=== PATIENT | male | born 1960 | race Caucasian/White ===

== ENCOUNTER 2024-04-26 15:01 | Emergency (ER) | payer MEDICARE, SELFPAY ==
[2024-04-26 15:03] VITALS: BP 146/98
[2024-04-26 15:04] VITALS: BMI 28.5
[2024-04-26 15:05] VITALS: BP 146/98
[2024-04-26] MEDS: NSS 1000 IV ×2 (15:19→18:46)
[2024-04-26] MEDS: MAALOX 30 ML PO (15:33)
[2024-04-26 15:35] LABS: % Basophils 0.5 % (0-2); % Eosinophils 1.1 % (0-6); % Immature Granulocytes 0.5 % (0-0.5); % Lymphocytes 34.9 % (20.5-51.1); % Monocytes 8.9 % (1.7-9.3); % Neutrophils 54.1 % (42.2-75.2); Absolute Eosinophils 0.1 10^3/uL (0-0.7); Absolute Lymphocytes 2.7 10^3/uL (1.2-3.4); Absolute Monocytes 0.7 10^3/uL (0.1-0.6); Absolute Neutrophils 4.2 10^3/uL (1.4-6.5); Hematocrit 47.1 % (39.0-52.0); Hemoglobin 16.2 g/dL (13.0-18.0); Mean Corp Hgb Conc. 34.4 g/dL (33.0-37.0); Mean Corpuscular Hgb 30.1 pg (27.0-31.0); Mean Corpuscular Volume 87.5 fL (80.0-94.0); Mean Platelet Volume 10.7 fL (7.4-10.4); Nucleated Red Blood Cells % 0 % (-); Platelet Count 220 10^3/uL (130-400); Red Blood Cell Count 5.38 10^6/uL (4.70-6.10); Red Cell Dist. Width 13.6 % (11.5-14.5); White Blood Cell Count 7.9 10^3/uL (4.8-10.8)
[2024-04-26 15:45] LABS: ALT (SGPT) 41 U/L (0-50); AST (SGOT) 35 U/L (17-59); Albumin 4.8 g/dl (3.5-5.0); Alkaline Phosphatase 72 U/L (38-126); Blood Urea Nitrogen 16 mg/dl (9-20); Calcium 9.6 mg/dl (8.4-10.2); Carbon Dioxide 22 mmol/L (22-30); Chloride 104 mmol/L (98-107); Estimated Creatinine Clearance 69 ml/min; Glucose 112 mg/dl (70-99); Potassium 3.9 mmol/L (3.5-5.1); Sodium 139 mmol/L (135-145); Total Bilirubin 0.6 mg/dl (0.2-1.3); eGFR > 60.00
[2024-04-26 15:57] LABS: Troponin I < 0.012 ng/ml
[2024-04-26 16:00] VITALS: BP 146/89
[2024-04-26 17:14] VITALS: BP 141/98
--- NOTE | 2024-04-26 17:44 | ED.GENMED ---
History of Present Illness
<Jitendra Babb DO - Last Filed: 04/26/24 17:48>
General
Chief Complaint: Fainting/Passed Out
Source: patient and spouse
Exam Limitations: none
Time Seen by Provider: 04/26/24 15:32
History of Present Illness
History of Present Illness:
This 64-year-old male presents after a syncopal event while at a movie theater. Patient states he was watching a movie and suddenly developed sweating and nausea. He states he told his he had a leaf. They went outside and he was sitting down
and he states he got very sweaty and passed out. His states he then vomited and was extremely sweaty. Denies any associated chest pain. He did have a little bit of right arm pain and is not sure if it is associated. He now feels much better
but just feels a bit weak. Never had any chest pain or palpitations. Never had any shortness of breath. Does feel like he may have to have a bowel movement soon. Has had a history of constipation. No back pain.
Past History
<Jitendra Babb DO - Last Filed: 04/26/24 17:48>
Past History
ED Past Medical History: Other (Squamous cell skin cancer, eczema, diverticulitis, hyperlipidemia, PTSD)
ED Past Surgical History: Other (Hernia repair)
Social History
Tobacco: Former smoker
Alcohol: Occasional
Drug: None
Personal:
Living: with family
Employment: Other
Phy Exam
<Jitendra Babb DO - Last Filed: 04/26/24 17:48>
Physical Exam
Physical Exam:
CONSTITUTIONAL Patient alert and oriented to person, place and time. Well-appearing. Vital signs reviewed.
HEAD atraumatic, normocephalic.
EYES eyelids normal to inspection, Extraocular muscles intact, Conjunctiva normal, Sclera normal.
NECK normal range of motion, Trachea midline, no jugular venous distention.
RESPIRATORY CHEST No respiratory distress noted, Chest expansion equal, Bilateral breath sounds clear.
CARDIOVASCULAR regular rate and rhythm, Heart sounds normal.
ABDOMEN abdomen nontender, Bowel sounds normal. No distention.
BACK normal inspection, no obvious deformities
UPPER EXTREMITY range of motion normal, Motor strength normal, no cyanosis, no edema.
LOWER EXTREMITY range of motion normal, Motor strength normal, no cyanosis, no edema.
NEURO Speech normal, No focal motor deficits, Brittney coma scale 15, Memory normal, Cranial Nerves intact to screening exam.
SKIN skin warm, dry, and normal in color.
Course
<Jitendra Babb, DO - Last Filed: 04/26/24 17:48>
Orders/Labs/Results
Orders:
Orders
04/26/24 15:03
Electrocardiogram (*1) Urgent
Reason for Study: Syncope
04/26/24 15:04
EKG- Treatment ONCE
04/26/24 15:17
Complete Blood Count/With Diff Urgent
Comprehensive Metabolic Panel Urgent
Troponin I Urgent
04/26/24 15:19
0.9% Sodium Chloride 1000 ml [Nss] 1,000 ml IV BOLUS
04/26/24 15:26
Mag Hydrox/Al Hydrox/Simeth [Maalox] 30 ml .ROUTE .STK-MED ONE
04/26/24 15:33
Mag Hydrox/Al Hydrox/Simeth [Maalox] 30 ml PO NOW STA
04/26/24 18:00
Troponin I Urgent
04/26/24 18:44
0.9% Sodium Chloride 1000 ml [Nss] 1,000 ml IV BOLUS
Ondansetron Injectable [Zofran] 4 mg IV NOW STA
04/26/24 18:45
Ondansetron Injectable [Zofran] 4 mg .ROUTE .STK-MED ONE
04/26/24 19:50
Ondansetron HCl [Zofran] 4 mg PO NOW STA
Abnormal Lab Results
04/26/24
15:17
MPV 10.7 H fL
(7.4-10.4)
Absolute Monos (auto) 0.7 H 10^3/uL
(0.1-0.6)
Glucose 112 H mg/dl
(70-99)
04/26/24 15:17
04/26/24 15:17
Vital Signs
Initial and Last Documented VS:
Initial Vital Signs
Pulse Resp BP
71 16 146/98
04/26/24 15:03 04/26/24 15:03 04/26/24 15:03
Last Documented Vital Signs
Temp Pulse Resp BP Pulse Ox
98.0 F 75 23 151/93 97
04/26/24 15:05 04/26/24 19:45 04/26/24 16:45 04/26/24 19:00 04/26/24 19:45
<Lucita Damon, DO - Last Filed: 04/26/24 19:52>
Orders/Labs/Results
Orders:
Orders
04/26/24 15:03
Electrocardiogram (*1) Urgent
Reason for Study: Syncope
04/26/24 15:04
EKG- Treatment ONCE
04/26/24 15:17
Complete Blood Count/With Diff Urgent
Comprehensive Metabolic Panel Urgent
Troponin I Urgent
04/26/24 15:19
0.9% Sodium Chloride 1000 ml [Nss] 1,000 ml IV BOLUS
04/26/24 15:26
Mag Hydrox/Al Hydrox/Simeth [Maalox] 30 ml .ROUTE .STK-MED ONE
04/26/24 15:33
Mag Hydrox/Al Hydrox/Simeth [Maalox] 30 ml PO NOW STA
04/26/24 18:00
Troponin I Urgent
04/26/24 18:44
0.9% Sodium Chloride 1000 ml [Nss] 1,000 ml IV BOLUS
Ondansetron Injectable [Zofran] 4 mg IV NOW STA
04/26/24 18:45
Ondansetron Injectable [Zofran] 4 mg .ROUTE .STK-MED ONE
04/26/24 19:50
Ondansetron HCl [Zofran] 4 mg PO NOW STA
Abnormal Lab Results
04/26/24
15:17
MPV 10.7 H fL
(7.4-10.4)
Absolute Monos (auto) 0.7 H 10^3/uL
(0.1-0.6)
Glucose 112 H mg/dl
(70-99)
04/26/24 15:17
04/26/24 15:17
Vital Signs
Initial and Last Documented VS:
Initial Vital Signs
Pulse Resp BP
71 16 146/98
04/26/24 15:03 04/26/24 15:03 04/26/24 15:03
Last Documented Vital Signs
Temp Pulse Resp BP Pulse Ox
98.0 F 75 23 151/93 97
04/26/24 15:05 04/26/24 19:45 04/26/24 16:45 04/26/24 19:00 04/26/24 19:45
<Jitendra Babb DO - Last Filed: 04/26/24 17:48>
MDM/Problems Addressed
Differential Diagnosis Includes:
Arrhythmia, vasovagal event, gastroenteritis, electrolyte disturbance
MDM/Problems Addressed:
Vasovagal syncope, vomiting
<Jitendra Babb DO - Last Filed: 04/26/24 17:48>
*Pulse Oximetry
Patient hypoxic: no
*EKG
Interpreted by ED Provider?: Yes
Interpretation: abnormal
Rate: normal
Rhythm: sinus
Interval: first degree heart block
QRS Pattern: left vent hypertrophy
Ischemia: no ischemia
*Quality Systems Engineer Interpretation
Rate: normal
Interpretation: normal
Rhythm: sinus
*Critical Care Note
Total Time (30-74mins, 75-104mins- exclusive of procedures): Not Applicable
Data Reviewed
Source: patient and spouse
Further Testing Considered But Not Given:
Consider CT head but patient had no headache or other neurologic symptoms
<Jitendra Babb, DO - Last Filed: 04/26/24 17:48>
Patient Management
Escalation/DeEscalation of care consider admission/obs:
Suspect vasovagal event related to nausea and vomiting. Symptoms have since resolved and EKG and initial troponin negative but will repeat EKG. Never had any associated chest discomfort. If repeat troponin negative anticipate discharge
<Lucita Damon DO - Last Filed: 04/26/24 19:52>
Update Note
Update Note:
Attending Signout Note
18:10 -assuming care of patient, 64-year-old male presenting after a syncopal episode. Patient was at the movie theater, he became sweaty and nauseous. Then had a syncopal episode with vomiting. Currently is feeling better, reports some
generalized weakness. Denies any prodromal chest pain or difficulty breathing. Pulmonary workup is unremarkable with normal EKG, troponin. Suspected vasovagal syncope. Pending second troponin.
18:30 - Second troponin within normal limits. However, called to bedside because patient was starting to feel clammy and nauseous like he was going to vomit. On assessment, also feels like he is going to have a bowel movement. At this time
suspect the patient is developing a GI illness. Will treat with Zofran and additional fluids and reassess.
19:45 - Patient remains hemodynamically stable. Feel stable for discharge with close outpatient primary care follow-up, and continued outpatient supportive therapy for GI illness. Strict return precautions communicated and patient verbalized
understanding
-Lucita Damon DO
ED Attending Note
<Jitendra Babb DO - Last Filed: 04/26/24 17:48>
-
Portions of this chart may have been created with voice recognition software.� Occasional wrong word or��sound alike� substitutions may have occurred due to the inherent limitations of voice recognition software.
Discharge Plan
Departure
Patient Disposition: Home (Routine Discharge)
Date of Disposition: 04/26/24
Time of Disposition: 19:51
Patient with high blood pressure during this ER visit?: Yes
Discharge Problem:
Vasovagal syncope, Gastroenteritis
Instructions: Syncope (Fainting) (DC), BLOOD PRESSURE, Acute Nausea and Vomiting
Prescriptions:
New
ondansetron 4 mg Tablet,Disintegrating
4 mg PO TIDPRN PRN (Reason: nausea/vomiting) Qty: 6 0RF
No Action
atorvastatin 40 MG tablet
40 mg PO HS
dextroamphetamine-amphetamine 10 MG tablet
10 mg PO DAILYPRN PRN (Reason: need to focus )
zolpidem 10 MG tablet
10 mg PO HSPRN PRN (Reason: insomnia)
Cialis
10 mg PO PRN PRN (Reason: ED)
Medical Marijuana
1 dose inhalation PRN PRN (Reason: pain)
Patient Comments:
flower (vape)
multivitamin
1 tab PO DAILY
bupropion HCl 300 mg Tablet Extended Release 24 Hr
300 mg PO DAILY
Medical Marijuana
1 drp PO PRN PRN (Reason: pain)
Patient Comments:
tincture
Sutab 1.479-0.188- 0.225 gram Tablet
0 tab PO PER PKG DIR
acetaminophen 500 mg Tablet
1,000 mg PO PRN PRN (Reason: pain)
hydrocodone-acetaminophen 5-325 mg tablet
1 tab PO Q6H PRN (Reason: pain) Qty: 20 0RF
pantoprazole 40 mg Tablet,Delayed Release (Dr/Ec)
40 mg PO BID Qty: 60 0RF
Referrals:
Mari Jacobo MD [Family Provider] -
Activity Restrictions/Additional Instructions:
Please drink plenty of fluids. Return immediately for chest pain, shortness of breath, recurrent passing out episode or any other concerns. Please see your doctor next 3 to 5 days for follow-up and reevaluation.
Interventions
Interventions:
*Risk Screen - Suicide Last Done: 04/26/24 15:13
*General Assessment Last Done: 04/26/24 15:12
*Neglect/Abuse Screening Last Done: 04/26/24 15:13
ED- Fall Risk Assessment Last Done: 04/26/24 15:13
*ED COVID-19 Vaccine History Last Done: 04/26/24 15:12
ED- Cardiac Assessment Last Done: 04/26/24 15:14
ED- Neurological Assessment Last Done: 04/26/24 15:14
Discharge Date and Time
Print Language: MALIAN
[2024-04-26 18:00] VITALS: BP 139/92
[2024-04-26 18:35] LABS: Troponin I < 0.012 ng/ml
[2024-04-26 18:43] LABS: Glucose - Point of Care 96 mg/dl (70-99)
[2024-04-26] MEDS: ZOFRAN 4 MG IV (18:47)
[2024-04-26 19:00] VITALS: BP 151/93
[2024-04-26] MEDS: ZOFRAN 4 MG PO (19:53)
== END 2024-04-26 20:08 | disposition home or self-care (01) ==
LOC: EMR 15:01
PROVIDERS: Emergency Medicine; EMERGENCY PHYSICIAN Student in an Organized Health Care Education/Training Program; FAMILY PHYSICIAN Student in an Organized Health Care Education/Training Program
DX: K52.9 Noninfective gastroenteritis and colitis, unspecified (principal); R55 Syncope and collapse; R03.0 Elevated blood-pressure reading, without diagnosis of hypertension; Z87.891 Personal history of nicotine dependence
CPT/HCPCS: 99284; 96374; 96361 ×2; 80053; 82962; 84484; 85025; 93005

== ENCOUNTER → 2024-08-24 13:38 | Outpatient (REF) | payer MEDICARE, SELFPAY | LOC: HWRAD 13:38 | PROVIDERS: ATTENDING PHYSICIAN Student in an Organized Health Care Education/Training Program | DX: R06.2 Wheezing (principal); K59.09 Other constipation | CPT/HCPCS: 71046; 74018 ==

== ENCOUNTER → 2024-09-01 08:31 | Outpatient (REF) | payer MEDICARE, SELFPAY | LOC: RST 08:31 | PROVIDERS: ATTENDING PHYSICIAN Student in an Organized Health Care Education/Training Program | DX: R13.19 Other dysphagia (principal) | CPT/HCPCS: 74230; 92611 ==

== ENCOUNTER → 2024-09-08 09:00 | Outpatient (REF) | payer MEDICARE, SELFPAY | LOC: RSP 09:00 | PROVIDERS: ATTENDING PHYSICIAN Student in an Organized Health Care Education/Training Program | DX: R06.2 Wheezing (principal) | CPT/HCPCS: 94010 ==

== ENCOUNTER 2024-09-22 06:19 | Day surgery (SDC) | payer MEDICARE, SELFPAY | END 2024-09-22 12:51 | disposition home or self-care (01) | LOC: GI 06:19 | PROVIDERS: ATTENDING PHYSICIAN Specialist | DX: R10.10 Upper abdominal pain, unspecified (principal); R13.10 Dysphagia, unspecified; K22.2 Esophageal obstruction | CPT/HCPCS: 43249; 43239; 88305; 88342 ==